=== PATIENT | male | born 1995 | race African-American/Black ===

== ENCOUNTER 2018-06-04 15:25 | Emergency (ER) | payer BC, OTHER | END 2018-06-04 17:17 | disposition home or self-care (01) | LOC: FTE 15:25 | DX: S21.152A Open bite of left front wall of thorax without penetration into thoracic cavity, initial encounter (principal); W50.3XXA Accidental bite by another person, initial encounter; Y92.9 Unspecified place or not applicable | CPT/HCPCS: 99283 ==